=== PATIENT | male | born 1995 | race African-American/Black ===

== ENCOUNTER 2018-08-03 14:38 | Outpatient (CLI) | payer OTHER | END 2018-08-03 14:39 | disposition critical access hospital (66) | LOC: EMS 14:38 | PROVIDERS: ATTEND Surgery | DX: M25.511 Pain in right shoulder (principal); S51.802A Unspecified open wound of left forearm, initial encounter; S51.001A Unspecified open wound of right elbow, initial encounter; S61.501A Unspecified open wound of right wrist, initial encounter; S61.209A Unspecified open wound of unspecified finger without damage to nail, initial encounter; V28.4XXA Motorcycle driver injured in noncollision transport accident in traffic accident, initial encounter; Y92.410 Unspecified street and highway as the place of occurrence of the external cause | CPT/HCPCS: A0425; A0429 ==

== ENCOUNTER 2018-08-03 14:57 | Emergency (ER) | payer OTHER ==
[2018-08-03] MEDS ORDERED: KETOROLAC 30 MG/ML VIAL IM STA (15:15)
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
[2018-08-03] MEDS ORDERED: KETAMINE 500 MG/10 ML VIAL ONE (15:39)
--- NOTE | 2018-08-03 15:39 | XRAY Report ---
Reason: chest pain Procedure Date: 08/03/2018 Accession Number: [id number] / [id number] Procedure: XR - Chest 1 View X-Ray CPT Code: 95205 FULL RESULT: EXAM: CHEST RADIOGRAPHY EXAM DATE: 08/03/2018 03:34 PM. CLINICAL HISTORY: Chest pain. COMPARISON: None. TECHNIQUE: 1 view. FINDINGS: Lungs/Pleura: No focal opacities evident. No pleural effusion. No pneumothorax. Mediastinum: Within exam limitations, the cardiomediastinal contour is normal with apparent cardiomegaly felt to be due to AP technique and magnification. Other: None. IMPRESSION: No acute cardiopulmonary abnormality. RADIA
--- NOTE | 2018-08-03 15:42 | XRAY Report ---
Reason: fracture of right shoulder Procedure Date: 08/03/2018 Accession Number: [id number] / [id number] Procedure: XR - Shoulder 3 View RT CPT Code: FULL RESULT: EXAM: RIGHT SHOULDER RADIOGRAPHY EXAM DATE: 08/03/2018 03:34 PM. CLINICAL HISTORY: Fracture of right shoulder. COMPARISON: None. TECHNIQUE: 3 views. FINDINGS: Bones: No fracture is seen. Joints: The glenohumeral joint is dislocated. The head of the humerus is located inferiorly and anteriorly. Soft tissues: The visualized hemithorax is unremarkable. No soft tissue swelling. IMPRESSION: Anterior inferior glenohumeral dislocation. RADIA
[2018-08-03] MEDS ORDERED: KETAMINE 500 MG/10 ML VIAL IVP STA (16:01)
--- NOTE | 2018-08-03 17:08 | XRAY Report ---
Reason: shoulder s/p reduction Procedure Date: 08/03/2018 Accession Number: [id number] / [id number] Procedure: XR - Shoulder 1 View RT CPT Code: FULL RESULT: EXAM: RIGHT SHOULDER RADIOGRAPHY EXAM DATE: 08/03/2018 04:36 PM. CLINICAL HISTORY: Shoulder s/p reduction. COMPARISON: SHOULDER 3 VIEW RT 08/03/2018 3:13 PM. TECHNIQUE: AP view. FINDINGS: Bones: Normal. No fracture or bone lesion. Joints: Anterior shoulder dislocation seen before has been reduced to anatomic alignment. Acromioclavicular and coracoclavicular distances are normal. Soft tissues: The visualized hemithorax is unremarkable. No soft tissue swelling. IMPRESSION: Anterior right shoulder dislocation reduced to anatomic alignment on this single AP view. RADIA
[2018-08-03 17:39] VITALS: BP 103/74
== END 2018-08-03 17:53 | disposition home or self-care (01) ==
LOC: ED 14:57
DX: S43.014A Anterior dislocation of right humerus, initial encounter (principal); S60.812A Abrasion of left wrist, initial encounter; S50.811A Abrasion of right forearm, initial encounter; V28.4XXA Motorcycle driver injured in noncollision transport accident in traffic accident, initial encounter; Y93.I9 Activity, other involving external motion
CPT/HCPCS: 23650; 71045; 94770; 96374; 99152; 99157; 99283

== ENCOUNTER 2018-08-07 06:54 | Day surgery (SDC) | payer OTHER ==
[~2018-08-07 06:54] MED LIST: CEFAZOLIN SODIUM IN 0.9 % NACL 2 GM/100 ML BAG IV ONE
[2018-08-07] MEDS ORDERED: BUPIVACAINE 0.25% PF 30 ML VIAL ONE (07:14)
[2018-08-07] MEDS ORDERED: LACTATED RINGERS 1,000 ML IV ONE ×2 (07:29→10:42)
--- NOTE | 2018-08-07 07:36 | ANESTHESIA ---
Pre-Anesthesia VS, & Labs - Diagnosis left scaphoid fracture - Procedure closed reduction percutaneous pinning of left scaphoid fracture Vital Signs: Temp Pulse Resp BP Pulse Ox 36 C L 77 12 133/101 H 100 08/07/18 07:30 08/07/18 07:30 08/07/18 07:30 08/07/18 07:30 08/07/18 07:30 Height 5 ft 8.5 in Weight (kg) 88.9 kg Body Mass Index 29.5 - NPO >8 hours Home Medications and Allergies Home Medications: Ambulatory Orders Acetaminophen [Tylenol] 650 mg PO Q6H PRN 08/06/18 Acetaminophen [Tylenol] 650 mg PO Q6H PRN 08/06/18 Allergies/Adverse Reactions: Allergies Allergy/AdvReac Type Severity Reaction Status Date / Time No Known Drug Allergies Allergy Verified 08/06/18 12:42 Anes History & Medical History - Anesthetic History Anesthesia Complications: reports: No previous complications Family history of Anesthesia Complications: Denies Family history of Malignant Hyperthermia: Denies - Medical History Cardiovascular: reports: None Pulmonary: reports: None Gastrointestinal: reports: None Urinary: reports: None Neuro: reports: None Musculoskeletal: reports: Other Endocrine/Autoimmune: reports: None Blood Disorders: reports: None Skin: reports: None Smoking Status: Never smoker Exam General: Alert, Oriented x3, Cooperative, No acute distress Dental: WNL Mouth Openin Fingerbreadth Neck Mobility: Normal Mallampati classification: II Thyromental Distance: greater than 6 cm Respiratory: Lungs clear, Normal breath sounds, No respiratory distress, No accessory muscle use Cardiovascular: Regular rate, Normal S1, Normal S2, No murmurs Mental/Cognitive Status: Alert/Oriented X3, Normal for patient Plan Anesthesia Type: General Consent for Procedure(s) Verified and Reviewed: Yes Code Status: Attempt Resuscitation ASA classification: 1-Healthy patient Is this case an emergency?: No
[2018-08-07] MEDS ORDERED: MIDAZOLAM 2 MG/2 ML VIAL IVP ONE (08:25)
[2018-08-07] MEDS ORDERED: ONDANSETRON 4 MG/2 ML VIAL IVP ONE (08:25)
[2018-08-07] MEDS ORDERED: LIDOCAINE-MPF 2% 5 ML VIAL IM ONE (08:25)
[2018-08-07] MEDS ORDERED: KETOROLAC 30 MG/ML VIAL IVP ONE (08:25)
[2018-08-07] MEDS ORDERED: DEXAMETHASONE 4 MG/ML VIAL IVP ONE (08:25)
[2018-08-07] MEDS ORDERED: fentaNYL 100 MCG/2 ML VIAL IVP ONE (08:25)
[2018-08-07] MEDS ORDERED: PROPOFOL 200 MG/20 ML VIAL IVP ONE (08:25)
[2018-08-07] MEDS ORDERED: BUPIVACAINE 0.25% PF 30 ML VIAL SUBQ ONE ×2 (08:42)
[2018-08-07] MEDS ORDERED: ONDANSETRON 4 MG/2 ML VIAL IVP PRN (11:15)
[2018-08-07] MEDS ORDERED: oxyCODONE 5 MG TABLET PO PRN (11:15)
--- NOTE | 2018-08-07 11:41 | XRAY Report ---
Reason: LEFT SCHAPOID CLOSED REDUCTION Procedure Date: 08/07/2018 Accession Number: [id number] / [id number] Procedure: FL - OR C-Arm Procedure CPT Code: FULL RESULT: EXAM: FLUOROSCOPIC GUIDANCE EXAM DATE: 08/07/2018 10:29 AM. CLINICAL HISTORY: Left scaphoid closed reduction. COMPARISON: None. FINDINGS: No images are submitted for review. Radiologist was not present. IMPRESSION: Fluoroscopic guidance provided for left scaphoid reduction.. Total fluoroscopy time: 42 seconds. Number of images: 0 submitted as part of the C-ARM utilization. RADIA
--- NOTE | 2018-08-07 11:41 | XRAY Report ---
Reason: LEFT WRIST SCAPHOID REPAIR Procedure Date: 08/07/2018 Accession Number: [id number] / [id number] Procedure: XR - Wrist 3 View LT CPT Code: FULL RESULT: EXAM: LEFT WRIST RADIOGRAPHY EXAM DATE: 08/07/2018 10:31 AM. CLINICAL HISTORY: Left wrist scaphoid repair. COMPARISON: None. TECHNIQUE: Nine intraoperative fluoroscopic images are submitted for review. Views are AP, oblique and lateral at 3 distinct time points in the procedure. FINDINGS: A distal scaphoid fracture is demonstrated which is then operatively fixated with a Saira wire over which a cannulated threaded screw is placed into the scaphoid bone with subsequent Saira wire removal. IMPRESSION: ORIF of scaphoid with fixation screw in expected position on final image. RADIA
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
[2018-08-07] MEDS ORDERED: oxyCODONE 5 MG TABLET ONE (12:36)
[2018-08-07 12:55] VITALS: BP 128/83
--- NOTE | 2018-08-07 19:10 | XRAY Report ---
Reason: preop films Procedure Date: 08/07/2018 Accession Number: [id number] / [id number] Procedure: XR - Shoulder 3 View RT CPT Code: FULL RESULT: EXAM: RIGHT SHOULDER RADIOGRAPHY EXAM DATE: 08/07/2018 07:28 AM. CLINICAL HISTORY: Preop films. COMPARISON: SHOULDER 1 VIEW RT 08/03/2018 4:19 PM. TECHNIQUE: 3 views. FINDINGS: Bones: Normal. No fracture or bone lesion. Joints: The glenohumeral and acromioclavicular joints are normal. Soft tissues: The visualized hemithorax is unremarkable. No soft tissue swelling. IMPRESSION: Normal shoulder radiography. RADIA
== END 2018-08-07 06:55 | disposition home or self-care (01) ==
LOC: SDS 06:54
PROVIDERS: ATTEND Orthopaedic Surgery
PROC: 0PSN04Z Reposition Left Carpal with Internal Fixation Device, Open Approach (ICD-10-PCS; principal; 2018-08-07 08:00)
DX: S62.012A Displaced fracture of distal pole of navicular [scaphoid] bone of left wrist, initial encounter for closed fracture (principal); S43.004D Unspecified dislocation of right shoulder joint, subsequent encounter; S50.812D Abrasion of left forearm, subsequent encounter; V29.9XXA Motorcycle rider (driver) (passenger) injured in unspecified traffic accident, initial encounter; Y92.410 Unspecified street and highway as the place of occurrence of the external cause
CPT/HCPCS: 25628; 73030; 73110; A9270; J0690; J7120

== ENCOUNTER 2018-10-30 11:49 | Outpatient (CLI) | payer OTHER ==
[2018-10-30] MEDS ORDERED: IOTHALAMATE MEGLUMINE 50 ML VIAL ONE (12:24)
[2018-10-30] MEDS ORDERED: GADOPENTETATE DIMEGLUMINE 5 ML VIAL IVP ONE (12:24)
[2018-10-30] MEDS ORDERED: BUFFERED LIDOCAINE 10 ML SYRINGE ONE (12:25)
--- NOTE | 2018-10-30 15:36 | XRAY Report ---
Reason: UNSPEC DISLOCATION OF RIGHT SHOULDER Procedure Date: 10/30/2018 Accession Number: [id number] / [id number] Procedure: FL - Arthrogram Needle Placement CPT Code: FULL RESULT: EXAM: RIGHT SHOULDER ARTHROGRAPHIC INJECTION WITH FLUOROSCOPIC GUIDANCE EXAM DATE: 10/30/2018 01:02 PM. CLINICAL HISTORY: unspecified dislocation of right shoulder. COMPARISON: LEFT SCAPHOID CLOSED REDUCTION 08/07/2018 7:25 AM. TECHNIQUE: The risks, benefits, and alternatives of the procedure were discussed with the patient. All questions were answered. Written and verbal consent were obtained. The glenohumeral joint was marked under fluoroscopy and prepped and draped in a sterile manner. Local anesthesia was performed with 1% lidocaine. A 22-gauge needle was then inserted into the glenohumeral joint. 10 mL of a solution containing 25% 1% lidocaine, 25% iodinated contrast, and a 1:200 dilution of gadolinium contrast in sterile saline was then injected. The needle was removed without immediate complication. Other: None. Fluoroscopy Time: 1 second. Number of Images: 1. FINDINGS: Bones and joints: No fracture or subluxation. Injection: Fluoroscopic images demonstrate needle placement and contrast in the glenohumeral joint. No contrast extravasation outside of the glenohumeral joint. IMPRESSION: Successful fluoroscopically-guided arthrographic injection of the shoulder. RADIA
--- NOTE | 2018-10-30 16:31 | MRI Report ---
Reason: UNSPECIFIED DISLOCATION OF RIGHT SHOULDER Procedure Date: 10/30/2018 Accession Number: [id number] / [id number] Procedure: MRI - Arthrogram Shoulder RT CPT Code: FULL RESULT: EXAM: RIGHT SHOULDER MRI ARTHROGRAM WITH CONTRAST EXAM DATE: 10/30/2018 02:01 PM. CLINICAL HISTORY: UNSPECIFIED DISLOCATION OF RIGHT SHOULDER. COMPARISON: Right shoulder radiographs 08/07/2018. TECHNIQUE: Multiplanar, multisequence T1-weighted and fluid-sensitive sequences of the shoulder after an arthrographic injection of dilute gadolinium, dictated under a separate exam. Other: None. FINDINGS: Acromioclavicular Region: The acromion is type II. The acromioclavicular joint is unremarkable. The coracoacromial and coracoclavicular ligaments are intact. There is no contrast or fluid in the subacromial/subdeltoid bursa. Glenohumeral Region: Slight posterior subluxation of the humeral head on the glenoid. No loose bodies. The articular cartilage is unremarkable. The glenohumeral ligaments and joint capsule are unremarkable. Bone Marrow: Chronic appearing Hill-Sachs impaction fracture of the posterior superior humeral head measuring 1.8 cm in yemi-posterior dimension on the axial sequence. Mild irregularity of the anterior inferior glenoid without associated marrow edema. Labrum: Displaced tear of the anterior inferior labrum, with a small amount of contrast partially undermining the posterior-inferior labrum, as well (series 5 image 8). The superior labrum is intact. Biceps Tendon: The long head of the biceps tendon and biceps lucy are intact. Musculature/Rotator Cuff: The subscapularis, supraspinatus, infraspinatus, and teres minor tendons are intact. No edema or fatty atrophy. Other: The subcutaneous tissues are unremarkable. IMPRESSION: 1. Sequelae of anterior shoulder dislocation, with chronic appearing Hill-Sachs and Bankart impaction fractures and a displaced Bankart tear of the anterior inferior labrum. RADIA
== END 2018-10-30 11:50 | disposition home or self-care (01) ==
LOC: DI 11:49
PROVIDERS: ATTEND Orthopaedic Surgery
DX: S43.004A Unspecified dislocation of right shoulder joint, initial encounter (principal); S42.291D Other displaced fracture of upper end of right humerus, subsequent encounter for fracture with routine healing; S43.491A Other sprain of right shoulder joint, initial encounter
CPT/HCPCS: 23350; 73222; 77002; Q9961

== ENCOUNTER 2020-06-18 08:50 | Emergency (ER) | payer OTHER ==
[2020-06-18 09:03] VITALS: BP 138/81
[2020-06-18 09:49] LABS: RAPID STREP SCREEN Negative (Negative)
[2020-06-18] MEDS ORDERED: DEXAMETHASONE 10 MG/ML VIAL PO STA (10:24)
[2020-06-18] MEDS ORDERED: CHERRY SYRUP 10 ML UDC PO ONE (10:24)
--- NOTE | 2020-06-18 10:26 | ED Physician Documentation ---
PD HPI HEENT - Stated complaint Stated Complaint: THROAT PX - Chief complaint Chief Complaint: Heent - History obtained from History obtained from: Patient - History of Present Illness Timing - onset: How many days ago (5) Timing - duration: Days (5) Timing - details: Gradual onset, Still present Location: Throat Improves: Medication Worsens: Swalllowing Associated symptoms: Swollen nodes. 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 He was tested prior to leaving [facility] about 2 weeks ago and has been in quarantine since. He has developed a sore throat 5 days ago and this is persisted and is now more on the left side than the right and has persistent pain. Symptoms have not spontaneously resolved. He has not had a fever or cough associated with this. Review of Systems Constitutional: denies: Fever Eyes: denies: Decreased vision Ears: denies: Ear pain Nose: reports: Congestion. denies: Rhinorrhea / runny nose Throat: reports: Sore throat Cardiac: denies: Chest pain / pressure, Palpitations Respiratory: denies: Dyspnea, Cough GI: denies: Abdominal Pain, Nausea, Vomiting : denies: Dysuria PD PAST MEDICAL HISTORY - Past Medical History Past Medical History: No Cardiovascular: None Respiratory: None Neuro: None Endocrine/Autoimmune: None GI: None : None HEENT: None Psych: None Musculoskeletal: Other Derm: None - Past Surgical History Past Surgical History: Yes - Present Medications Home Medications: Ambulatory Orders Medication Instructions Recorded Confirmed Amox/Clav 875/125 [Augmentin] 1 each PO Q12H #20 tablet 06/18/20 - Allergies Allergies/Adverse Reactions: Allergies Allergy/AdvReac Type Severity Reaction Status Date / Time No Known Drug Allergies Allergy Verified 06/18/20 09:03 - Social History Does the pt smoke?: No Smoking Status: Never smoker Does the pt drink ETOH?: Yes Does the pt have substance abuse?: No - Immunizations Immunizations are current?: Yes - POLST Patient has POLST: No PD ED PE NORMAL - Vitals Vital signs reviewed: Yes (hypertensive mild) - General General: Alert and oriented X 3, No acute distress, Well developed/nourished - HEENT HEENT: Atraumatic, PERRL, EOMI, Ears normal, Other (Pharynx is with 2+ exudative cryptic tonsils more so on the left than the right there is swelling from behi nd the tonsillar pillars bilaterally) - Neck Neck: Supple, no meningeal sign, No bony TTP - Cardiac Cardiac: RRR, No murmur - Respiratory Respiratory: No respiratory distress, Clear bilaterally - Abdomen Abdomen: Soft, Non tender - Back Back: No CVA TTP, No spinal TTP - Derm Derm: Normal color, Warm and dry, No rash - Extremities Extremities: No deformity, No edema - Neuro Neuro: Alert and oriented X 3, shellfish shucker 2-12 intact, No motor deficit, No sensory deficit, Normal speech Eye Opening: Spontaneous Motor: Obeys Commands Verbal: Oriented GCS Score: 15 - Psych Psych: Normal mood, Normal affect Results - Vitals Vitals: Vital Signs - 24 hr 06/18/20 08:51 Temperature 36.3 C L Heart Rate 94 Respiratory 16 Rate Blood Pressure 138/81 H O2 Saturation 100 Oxygen O2 Source Room air - Labs Labs: Laboratory Tests 06/18/20 09:32 Group A Strep Rapid Negative PD MEDICAL DECISION MAKING - ED course Complexity details: considered differential, d/w patient ED course: -year-old male with cryptic exudative tonsillitis on day #5 has worsening of his symptoms and he is strep negative. We will place him on a course of Augmentin and we have given him a dose of dexamethasone here in the emergency department.He has recently finished quarantine after a negative test 2 weeks ago. Departure - Departure Disposition: 01 Home, Self Care Clinical Impression: Acute tonsillitis Qualifiers: Pharyngitis/tonsillitis etiology: unspecified etiology Qualified Code(s): J03.90 - Acute tonsillitis, unspecified Condition: Stable Instructions: ED Tonsillitis Follow-Up: Victor Hugo Nieves MD [Primary Care Provider] - Prescriptions: Amox/Clav 875/125 [Augmentin] 1 each PO Q12H #20 tablet
== END 2020-06-18 10:37 | disposition home or self-care (01) ==
LOC: ED 08:50
DX: J03.90 Acute tonsillitis, unspecified (principal)
CPT/HCPCS: 87070; 87430; 99283; 99284; A9270